=== PATIENT | male | born 1985 | race Two or more races ===

== ENCOUNTER 2017-10-16 04:40 | Emergency (ER) | payer OTHER ==
--- NOTE | 2017-10-16 05:13 | ED Physician Chart ---
ED Chief Complaint/HPI - Patient Information Date Seen:: 10/16/17 Time Seen:: 05:07 Chief Complaint:: HEMORROIDAL PAIN History of Present Illness:: THIS IS A 32 YO MALE WITH CONCERN ABOUT HIS ANNAL AREA PAIN AND SWELLING. HE STATES THAT HE HAS BEEN UNABLE TO SLEEP BECAUSE OF THE RECTALAREA PAIN. HE DENIES HAVING ANY ACTIVE BLEEDING. Vitals:: Vital Signs - 8 hr 10/16/17 04:40 Temp 99.4 F HR 84 RR 18 BP 117/47 O2 Sat % 98 Historian:: Patient Review:: Nurse's Note Reviewed ED Review of Systems - Review of Systems General/Constitutional: No fever, No chills, No weight loss, No weakness, No diaphoresis, No edema, No loss of appetite Skin: No skin lesions, No rash, No bruising Head: No headache, No light-headedness Eyes: No loss of vision, No pain, No diplopia ENT: No earache, No nasal drainage, No sore throat, No tinnitus Neck: No neck pain, No swelling, No thyromegaly, No stiffness, No mass noted Cardio Vascular: No chest pain, No palpitations, No PND, No orthopnea, No edema Pulmonary: No SOB, No cough, No sputum, No wheezing GI: No nausea, No vomiting, No diarrhea, No pain, No melena, No hematochezia, No constipation, No hematemesis G/U: No dysuria, No frequency, No hematuria Musculoskeletal: No bone or joint pain, No back pain, No muscle pain Endocrine: No polyuria, No polydipsia Psychiatric: No prior psych history, No depression, No anxiety, No suicidal ideation Hematopoietic: No bruising, No lymphadenopathy Allergic/Immuno: No urticaria, No angioedema Neurological: No syncope, No focal symptoms, No weakness, No paresthesia, No headache, No seizure, No dizziness, No confusion, No vertigo ED Past Medical History - Past Medical History Obtainable: Yes Past Medical History: No significant medical hx Family History: None Social History: Non Smoker, No Alcohol, No Drug Use, Employed Psychiatricy History: None Medication: Reviewed Family Medical History - Family Member Father History Unknown: Yes Hx Family Diabetes: Yes ED Physical Exam - Physical Examination General/Constitutional: Awake, Well-developed, well-nourished, Alert, No distress, GCS 15, Non-toxic appearing, Ambulatory Head: Atraumatic Eyes: Lids, conjuctiva normal, PERRL, EOMI Skin: Nl inspection, No rash, No skin lesions, No ecchymosis, Well hydrated, No lymphadenopathy ENMT: External ears, nose nl, Nasal exam nl, Lips, teeth, gums nl Neck: Nontender, Full ROM w/o pain, No JVD, No nuchal rigidity, No bruit, No mass, No stridor Respiratory: Nl effort/Exclusion, Clear to Auscultation, No Wheeze/Rhonchi/Rales Cardio Vascular: RRR, No murmur, gallop, rubs, NL S1 S2 GI: No tenderness/rebounding/guarding, No organomegaly, No hernia, Normal BS's, Nondistended, No mass/bruits, No McBurney tenderness, Rectum exam nl (ONE LARGE SIX O'CLOCK TENDER AND SWOLLEN HEMMORIOD NOTED) : No CVA tenderness Extremities: No tenderness or effusion, Full ROM, normal strength in all extremities, No edema, Normal digits & nails Neuro/Psych: Alert/oriented, DTR's symmetric, Normal sensory exam, Normal motor strength, Judgement/insight normal, Mood normal, Normal gait, No focal deficits Misc: Normal back, No paraspinal tenderness ED Assessment - Assessment General Assessment: HEMORROIDAL PAIN ED Septic Shock - . Is Septic Shock (SBP<90, OR Lactate>4 mmol\L) present?: No - <6hrs of presentation: Vital Signs: Vital Signs - 8 hr 10/16/17 04:40 Temp 99.4 F HR 84 RR 18 BP 117/47 O2 Sat % 98 ED Reassessment (Disposition) - Reassessment Reassessment Condition:: Unchanged - Diagnosis Diagnosis:: HEMORROIDAL PAIN - Aftercare/Follow up Instructions Aftercare/Follow-Up Instructions:: Counseled pt regarding lab results/diagnosis & need follow up, Refer to Discharge Instructions, Counseled pt & family regarding lab results/diagnosis & need follow up - Patient Disposition Discharge/Transfer:: Home Condition at Disposition:: Unchanged ED Discharge Plan - Patient Disposition Admit/Discharge/Transfer: PT DISCHARGED HOME Condition at Disposition: Unchanged Additional Instructions: THE PATIENT REFUSED ROCEPHIN IM AND TORADAL IM FOR THE HEMORROIDAL PAIN.
[2017-10-16 05:19] VITALS: BP 135/77
== END 2017-10-16 05:32 | disposition home or self-care (01) ==
LOC: ER 04:40
DX: K64.8 Other hemorrhoids (principal)
CPT/HCPCS: Z7502

== ENCOUNTER 2018-04-18 15:25 | Emergency (ER) | payer OTHER ==
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
--- NOTE | 2018-04-19 08:35 | Diagnostic Imaging Report ---
Cervical spine 5 views Indication: pain Comparison: Thoracic spines x-rays the same day Findings: There is straightening of the cervical lordosis. Assessment of the cervicothoracic junction is limited due to body habitus. No acute compression fracture or subluxation. Minimal degenerative changes are noted. Assessment of the atlantodental articulation was also limited however no evidence of fracture. No prevertebral soft tissue swelling. Impression: Suboptimal assessment of the cervical thoracic junction. No evidence of an acute compression fracture subluxation. Straightening of of the cervical lordosis which may be due to positioning versus muscle spasm. Minimal degenerative changes. If necessary CT follow-up may also be obtained for further assessment. In the setting of trauma, if clinical symptoms persist and there is continued concern for an occult fracture, follow up exams in 5-7 days is suggested.
--- NOTE | 2018-04-19 08:35 | Diagnostic Imaging Report ---
Thoracic spine 2 views Indication: pain Comparison: Cervical spine and lumbar spine x-rays the same day Findings: Assessment of the upper thoracic spine is limited due to body habitus. No acute compression fracture or subluxation. Minimal generalized degenerative changes are noted. There may be minimal scoliosis. Impression: No evidence of an acute compression fracture or subluxation Minimal generalized degenerative changes. There may be minimal scoliosis. If necessary CT follow-up may also be obtained for further assessment. In the setting of trauma, if clinical symptoms persist and there is continued concern for an occult fracture, follow up exams in 5-7 days is suggested.
--- NOTE | 2018-04-19 08:37 | Diagnostic Imaging Report ---
Lumbar spine 5 views Indication: pain Comparison: Thoracic spine x-ray the same day Findings: No evidence of an acute compression fracture or subluxation. Minimal degenerative changes are noted. The disc space heights are preserved. The visualized SI joints are preserved. Impression: No evidence of an acute compression fracture or subluxation. Minimal degenerative changes. In the setting of trauma, if clinical symptoms persist and there is continued concern for an occult fracture, follow up exams in 5-7 days is suggested.
== END 2018-04-18 17:20 | disposition home or self-care (01) ==
LOC: ER 15:25
DX: S39.92XA Unspecified injury of lower back, initial encounter (principal); V49.9XXA Car occupant (driver) (passenger) injured in unspecified traffic accident, initial encounter; Y93.89 Activity, other specified; Y92.410 Unspecified street and highway as the place of occurrence of the external cause; Y99.8 Other external cause status
CPT/HCPCS: 72050-TC; 72072-TC; 72110-TC; Z7502